=== PATIENT | male | born 1980 | race Caucasian/White ===

== ENCOUNTER 2017-01-31 02:14 | Emergency (ER) | payer OTHER ==
[2017-01-31] MEDS ORDERED: DICYCLOMINE 10 MG/ML 2 ML AMP IM STA (02:51)
--- NOTE | 2017-01-31 03:24 | XR ---
EXAM: 3 views of the abdomen. INDICATION: Pain. COMPARISON: None. FINDINGS: 3 AP supine and upright views of the abdomen demonstrates a nonobstructive, nonspecific gas pattern. No evidence of free intraperitoneal air. There is gaseous distention of the colon with nonspecific air-fluid levels. No evidence of organomegaly, abnormal calcifications or obvious soft tissue masses. The osseous structures are intact. IMPRESSION: Nonspecific air-fluid levels in the colon with associated gaseous distention. Please correlate for colonic ileus or enteritis.
[2017-01-31] MEDS ORDERED: cloNIDine HCL 0.1 MG TAB PO STA (03:26)
--- NOTE | 2017-01-31 03:28 | ED ---
Abdominal Pain HPI - General Chief Complaint: Abdominal Pain Stated Complaint: Abd pain, diarrhea Time Seen by Provider: 01/31/17 02:47 Source: patient, RN notes reviewed, old records reviewed Mode of arrival: ambulatory Limitations: no limitations - History of Present Illness Initial Comments: This is a 36 year old male with one day of diarrhea and abdominal pain. Patient daughter had similiar symtoms. Patient has no fever, chills, or abdominal tenderness. She states that the pain is a cramping sensation. No vomiting, but patient feels nauseated. No blood in stools. Patient states he has been drinking fluids and trying to stay hydrated. Patient has a PMH of diabetes and hypertension. - Related Data Home Medications Medication Instructions Recorded Confirmed Lisinopril [Prinivil] 1 tab PO DAILY 01/31/17 01/31/17 metFORMIN HCL 1 tab PO DAILY 01/31/17 01/31/17 Previous Rx's Medication Instructions Recorded Dicyclomine [Bentyl] 10 mg PO TID #20 capsule 01/31/17 Lisinopril [Prinivil] 10 mg PO DAILY #20 tab 01/31/17 Allergies Allergy/AdvReac Type Severity Reaction Status Date / Time No Known Allergies Allergy Verified 01/31/17 02:41 Review of Systems ROS Statement: Those systems with pertinent positive or pertinent negative responses have been documented in the HPI. ROS Other: All systems not noted in ROS Statement are negative. Past Medical History Past Medical History: Diabetes Mellitus, Hypertension History of Any Multi-Drug Resistant Organisms: None Reported Past Surgical History: Appendectomy Past Psychological History: No Psychological Hx Reported Smoking Status: Current every day smoker Past Alcohol Use History: Occasional Past Drug Use History: None Reported General Exam - General Exam Comments Initial Comments: Pleasant 36 year old male, no dsitress. Limitations: no limitations General appearance: alert, in no apparent distress Head exam: Present: atraumatic, normocephalic, normal inspection Eye exam: Present: normal appearance, PERRL, EOMI. Absent: scleral icterus, conjunctival injection, periorbital swelling ENT exam: Present: normal exam, mucous membranes moist Neck exam: Present: normal inspection. Absent: tenderness, meningismus, lymphadenopathy Respiratory exam: Present: normal lung sounds bilaterally. Absent: respiratory distress, wheezes, rales, rhonchi, stridor Cardiovascular Exam: Present: regular rate, normal rhythm, normal heart sounds. Absent: systolic murmur, diastolic murmur, rubs, gallop, clicks GI/Abdominal exam: Present: soft, normal bowel sounds. Absent: distended, tenderness, guarding, rebound, rigid Extremities exam: Present: normal inspection, full ROM, normal capillary refill. Absent: tenderness, pedal edema, joint swelling, calf tenderness Back exam: Present: normal inspection Neurological exam: Present: alert, oriented X3, CN II-XII intact Psychiatric exam: Present: normal affect, normal mood Skin exam: Present: warm, dry, intact, normal color. Absent: rash Course Vital Signs 01/31/17 01/31/17 02:37 03:35 Temperature 98.9 F 98.3 F Pulse Rate 102 H 80 Respiratory 20 18 Rate Blood Pressure 203/120 160/100 O2 Sat by Pulse 97 97 Oximetry Medical Decision Making - Medical Decision Making Patient is a 36 year old male with diarrhea and abdominal cramping for one day . PAteint does not appaer dehydrated. Xray abdomen shows signs of gastroenteritis. No abdominal tenderness. Patient will be discharged with bentyl , discussed follow up with PCP. Patient agrees with treatment plan and will comply. - Radiology Data Radiology results: report reviewed abdominal xray shows evidence of gastroenteritis. Disposition Clinical Impression: Gastroenteritis, Hypertension Disposition: HOME SELF-CARE Condition: Good Instructions: Gastroenteritis (ED) Additional Instructions: Patient advised to follow-up with primary care provider if symptoms continue persist. Take blood pressure medication. Remain hydrated. Return to emergency department if any alarming signs or symptoms occur. Prescriptions: Dicyclomine [Bentyl] 10 mg PO TID #20 capsule Lisinopril [Prinivil] 10 mg PO DAILY #20 tab Referrals: Judy Giles MD [STAFF PHYSICIAN] - 1-2 days Time of Disposition: 03:26
[2017-01-31 03:37] VITALS: BP 160/100; PULSE 80; RESP 18; TEMP 98.3
== END 2017-01-31 03:38 | disposition home or self-care (01) ==
LOC: EC 02:14
DX: K52.9 Noninfective gastroenteritis and colitis, unspecified (principal); I10 Essential (primary) hypertension; E11.9 Type 2 diabetes mellitus without complications; F17.200 Nicotine dependence, unspecified, uncomplicated; Z79.84 Long term (current) use of oral hypoglycemic drugs; Z79.899 Other long term (current) drug therapy; Z90.49 Acquired absence of other specified parts of digestive tract
CPT/HCPCS: 74020; 99284; 96372; J0500

== ENCOUNTER 2020-07-05 12:06 | Emergency (ER) | payer OTHER ==
[2020-07-05 12:28] VITALS: TEMP 98.9
[2020-07-05] MEDS ORDERED: lisinopriL 20 MG TAB PO STA (12:47)
--- NOTE | 2020-07-05 13:30 | XR ---
Right shoulder HISTORY: Trauma and pain 3 views of the right shoulder Right lung apex as visualized is normal. Bone mineralization, joint spaces and alignment are maintain ed. IMPRESSION: No fracture or dislocation.
--- NOTE | 2020-07-05 13:32 | ED ---
Upper Extremity HPI - General Chief Complaint: Extremity Injury, Upper Stated Complaint: R shoulder pain Time Seen by Provider: 07/05/20 12:32 Source: patient Mode of arrival: ambulatory Limitations: no limitations - History of Present Illness Initial Comments: 40-year-old male history of hypertension presents emergency department today for chief complaint of shoulder pain 1 month. Patient states that while he was at work he slipped on something plastic on the ground a month ago he states that he went to reach out to grab something to catch his fall and strained his right shoulder he states he has had pain ever since. He states that this morning he woke up and continued to have pain he thought it was time to get evaluated presented to the emergency department to have imaging studies performed. Patient states he is still able to range the shoulder he admits to discomfort he denies any numbness tingling or loss of sensation denies injury to the head or neck patient has significant elevation of blood pressure arrival he denies any chest pain shortness of breath decreased urine output headache nausea vomiting visual changes or leg swelling. Patient denies additional complaints he states he did not take his blood pressure medications today - Related Data Home Medications Medication Instructions Recorded Confirmed Lisinopril [Prinivil] 1 tab PO DAILY 01/31/17 01/31/17 metFORMIN HCL 1 tab PO DAILY 01/31/17 01/31/17 Previous Rx's Medication Instructions Recorded Dicyclomine [Bentyl] 10 mg PO TID #20 capsule 01/31/17 Lisinopril [Prinivil] 10 mg PO DAILY #20 tab 01/31/17 Allergies Allergy/AdvReac Type Severity Reaction Status Date / Time SSRI Meds AdvReac "patient Uncoded 07/05/20 12:45 states he gets weird" Review of Systems ROS Statement: Those systems with pertinent positive or pertinent negative responses have been documented in the HPI. ROS Other: All systems not noted in ROS Statement are negative. Past Medical History Past Medical History: Diabetes Mellitus, Hypertension History of Any Multi-Drug Resistant Organisms: None Reported Past Surgical History: Appendectomy Past Psychological History: No Psychological Hx Reported Smoking Status: Former smoker Past Alcohol Use History: Occasional Past Drug Use History: None Reported General Exam - General Exam Comments Initial Comments: General: The patient is awake and alert, in no distress Eye: Pupils are equal, round and reactive to light, extra-ocular movements are intact. No nystagmus. There is normal conjunctiva bilaterally. No signs of icterus. Ears, nose, mouth and throat: There are moist mucous membranes and no oral lesions. Neck: The neck is supple, there is no tenderness or JVD. Cardiovascular: There is a regular rate and rhythm. No murmur, rub or gallop is appreciated. Respiratory: Lungs are clear to auscultation, respirations are non-labored, breath sounds are equal. No wheezes, stridor, rales, or rhonchi. Gastrointestinal: Soft, non-distended, non-tender abdomen without masses or organomegaly noted. There is no rebound or guarding present Musculoskeletal: Normal ROM of the shoulder b/l with pain with ROm of the right shoulder. Strength 5/5. Sensation intact. radial pulses equal bilaterally 2+. Neurological: A&O x 3. CN II-XII intact, There are no obvious motor or sensory deficits. Coordination appears grossly intact. Speech is normal. Skin: Skin is warm and dry and no rashes or lesions are noted. No LE edema. Psychiatric: Cooperative, appropriate mood & affect, normal judgment. Limitations: no limitations Course Vital Signs 07/05/20 07/05/20 12:25 13:34 Temperature 98.9 F Pulse Rate 104 H 100 Respiratory 18 16 Rate Blood Pressure 188/103 185/133 O2 Sat by Pulse 99 96 Oximetry - Reevaluation(s) Reevaluation #1: Refused IV-- refused labs or work up for concern for hypertensive urgency, was willing to take oral BP medication Medical Decision Making - Medical Decision Making 40-year-old male presented for right shoulder pain ongoing times one month. Patient was significantly hypertensive on arrival. Repeat blood pressure continued to be elevated I recommended IV access for laboratory studies and further evaluation patient refused- i discussed concern for developing cardiac abnormalities, renal impairment from significant elevation of BP. He continued to refuse. I discussed concern that increased right shoulder pain could be in fact cardiac in nature. Patient continued to refuse and wanted to go home. He signed out AMA after discussing risk such as and permanent disability. Patient case discussed with Dr. Hess Disposition Clinical Impression: Right shoulder pain, Hypertensive urgency Disposition: Left Against Medical Advice Condition: Undetermined Additional Instructions: Please use medication as discussed. Please follow-up with family doctor in the next 2 days of symptoms have not improved. Please return to emergency room if the symptoms increase or worsen or for any other concerns. Is patient prescribed a controlled substance at d/c from ED?: No Referrals: None,Stated [Primary Care Provider] - 1-2 days Jimy Chong DO [Medical Doctor] - 1-2 days Time of Disposition: 13:38
[2020-07-05 13:35] VITALS: BP 185/133; PULSE 100; RESP 16
== END 2020-07-05 13:47 | disposition left against medical advice (07) ==
LOC: EC 12:06
DX: M25.511 Pain in right shoulder (principal); I16.0 Hypertensive urgency; I10 Essential (primary) hypertension; E11.9 Type 2 diabetes mellitus without complications; Z79.84 Long term (current) use of oral hypoglycemic drugs; Z79.899 Other long term (current) drug therapy; Z53.20 Procedure and treatment not carried out because of patient's decision for unspecified reasons; Z88.8 Allergy status to other drugs, medicaments and biological substances; Z87.891 Personal history of nicotine dependence
CPT/HCPCS: 99283

== ENCOUNTER 2021-08-05 19:28 | Inpatient (IN) | payer BC, OTHER ==
[2021-08-05] MEDS ORDERED: SODIUM CHLORIDE 0.9% 1,000 ML IV STA ×2 (20:32→21:38)
[2021-08-05] MEDS ORDERED: ONDANSETRON 4 MG/2 ML VIAL IVP STA (20:32)
[2021-08-05] MEDS ORDERED: ENALAPRILAT 1.25 MG/ML 1 ML VIAL IVP STA ×2 (20:33→21:30)
--- NOTE | 2021-08-05 20:35 | ED ---
General Adult HPI - General Chief complaint: Abdominal Pain Stated complaint: Nausea Time Seen by Provider: 08/05/21 20:30 Source: patient, RN notes reviewed Mode of arrival: ambulatory Limitations: no limitations - History of Present Illness Initial comments: Patient is a pleasant 41-year-old male presenting to the emergency Department with complaints of nausea. Patient ate [employer] yesterday and has been having symptoms since then. Patient is able to tolerate oral intake. Patient denies abdominal pain however only complains of nausea with some mild discomfort. No vomiting. No history of chronic abdominal problems. Patient has been off his blood pressure medication for the last 2 days. Patient states he ran out. - Related Data Home Medications Medication Instructions Recorded Confirmed lisinopriL 20 mg PO DAILY 09/21/20 08/05/21 metFORMIN HCL 500 mg PO DAILY 08/05/21 08/05/21 Allergies Allergy/AdvReac Type Severity Reaction Status Date / Time SSRI Meds AdvReac "patient Uncoded 08/05/21 21:33 states he gets weird" Review of Systems ROS Statement: Those systems with pertinent positive or pertinent negative responses have been documented in the HPI. ROS Other: All systems not noted in ROS Statement are negative. Constitutional: Denies: fever Eyes: Denies: eye pain ENT: Denies: ear pain Respiratory: Denies: cough Cardiovascular: Denies: chest pain Endocrine: Denies: fatigue Gastrointestinal: Reports: as per HPI, nausea Genitourinary: Denies: dysuria Musculoskeletal: Denies: back pain Skin: Denies: rash Neurological: Denies: weakness Past Medical History Past Medical History: Diabetes Mellitus, Hypertension Additional Past Medical History / Comment(s): Diet controlled diabetes. Recent blood in stool. History of Any Multi-Drug Resistant Organisms: None Reported Past Surgical History: Appendectomy Past Anesthesia/Blood Transfusion Reactions: No Reported Reaction Past Psychological History: No Psychological Hx Reported Smoking Status: Former smoker Past Alcohol Use History: None Reported Past Drug Use History: None Reported - Past Family History Father Family Medical History: No Reported History General Exam Limitations: no limitations General appearance: alert, in no apparent distress Head exam: Present: normocephalic Eye exam: Present: normal appearance Neck exam: Present: normal inspection Respiratory exam: Present: normal lung sounds bilaterally Cardiovascular Exam: Present: regular rate, normal rhythm Expanded Peripheral pulses: 2+: Posterior Tibialis (R), Posterior Tibialis (L) GI/Abdominal exam: Present: soft, normal bowel sounds. Absent: distended, tenderness, guarding, rebound, rigid, pulsatile mass Extremities exam: Present: normal inspection Neurological exam: Present: alert Psychiatric exam: Present: normal affect, normal mood Skin exam: Present: normal color Course Vital Signs 08/05/21 08/05/21 08/05/21 19:54 20:43 21:08 Temperature 97 F L Pulse Rate 115 H 117 H 87 Respiratory 19 18 18 Rate Blood Pressure 167/132 171/122 199/129 O2 Sat by Pulse 98 98 98 Oximetry 08/05/21 21:42 Temperature Pulse Rate 98 Respiratory 18 Rate Blood Pressure 144/108 O2 Sat by Pulse 98 Oximetry Medical Decision Making - Medical Decision Making Patient reevaluated and updated. Patient was considering leaving AGAINST MEDICAL ADVICE however is agreeing to stay for further control of his blood sugar and high blood pressure. Case was discussed with Dr. Wylie, who will admit covering Dr. Liang. - Lab Data Result diagrams: 08/05/21 21:01 08/05/21 21:01 Lab Results 08/05/21 08/05/21 08/05/21 Range/Units 21:01 21:01 21:01 WBC 8.5 (3.8-10.6) k/uL RBC 5.21 (4.30-5.90) m/uL Hgb 16.5 (13.0-17.5) gm/dL Hct 46.8 (39.0-53.0) % MCV 89.9 (80.0-100.0) fL MCH 31.7 (25.0-35.0) pg MCHC 35.3 (31.0-37.0) g/dL RDW 11.6 (11.5-15.5) % Plt Count 291 (150-450) k/uL MPV 7.1 Neutrophils % 70 % Lymphocytes % 21 % Monocytes % 5 % Eosinophils % 2 % Basophils % 1 % Neutrophils # 6.0 (1.3-7.7) k/uL Lymphocytes # 1.8 (1.0-4.8) k/uL Monocytes # 0.4 (0-1.0) k/uL Eosinophils # 0.2 (0-0.7) k/uL Basophils # 0.1 (0-0.2) k/uL PT (9.0-12.0) sec INR (<1.2) APTT (22.0-30.0) sec Sodium 126 L (137-145) mmol/L Potassium 4.1 (3.5-5.1) mmol/L Chloride 87 L (98-107) mmol/L Carbon Dioxide 27 (22-30) mmol/L Anion Gap 12 mmol/L BUN 13 (9-20) mg/dL Creatinine 0.80 (0.66-1.25) mg/dL Est GFR (CKD-EPI)AfAm >90 (>60 ml/min/1.73 sqM) Est GFR (CKD-EPI)NonAf >90 (>60 ml/min/1.73 sqM) Glucose 613 H* (74-99) mg/dL Calcium 9.8 (8.4-10.2) mg/dL Total Bilirubin 1.1 (0.2-1.3) mg/dL AST 24 (17-59) U/L ALT 22 (4-49) U/L Alkaline Phosphatase 288 H (38-126) U/L Total Protein 8.0 (6.3-8.2) g/dL Albumin 4.9 (3.5-5.0) g/dL Amylase 69 (30-110) U/L Lipase 112 (23-300) U/L Urine Color Urine Appearance (Clear) Urine pH (5.0-8.0) Ur Specific [place] (1.001-1.035) Urine Protein (Negative) Urine Glucose (UA) (Negative) Urine Ketones (Negative) Urine Blood (Negative) Urine Nitrite (Negative) Urine Bilirubin (Negative) Urine Urobilinogen (<2.0) mg/dL Ur Leukocyte Esterase (Negative) Acetone, Qual Negative (Negative) 08/05/21 08/05/21 Range/Units 21:06 Unknown WBC (3.8-10.6) k/uL RBC (4.30-5.90) m/uL Hgb (13.0-17.5) gm/dL Hct (39.0-53.0) % MCV (80.0-100.0) fL MCH (25.0-35.0) pg MCHC (31.0-37.0) g/dL RDW (11.5-15.5) % Plt Count (150-450) k/uL MPV Neutrophils % % Lymphocytes % % Monocytes % % Eosinophils % % Basophils % % Neutrophils # (1.3-7.7) k/uL Lymphocytes # (1.0-4.8) k/uL Monocytes # (0-1.0) k/uL Eosinophils # (0-0.7) k/uL Basophils # (0-0.2) k/uL PT 10.5 (9.0-12.0) sec INR 1.0 (<1.2) APTT 23.2 (22.0-30.0) sec Sodium (137-145) mmol/L Potassium (3.5-5.1) mmol/L Chloride (98-107) mmol/L Carbon Dioxide (22-30) mmol/L Anion Gap mmol/L BUN (9-20) mg/dL Creatinine (0.66-1.25) mg/dL Est GFR (CKD-EPI)AfAm (>60 ml/min/1.73 sqM) Est GFR (CKD-EPI)NonAf (>60 ml/min/1.73 sqM) Glucose (74-99) mg/dL Calcium (8.4-10.2) mg/dL Total Bilirubin (0.2-1.3) mg/dL AST (17-59) U/L ALT (4-49) U/L Alkaline Phosphatase (38-126) U/L Total Protein (6.3-8.2) g/dL Albumin (3.5-5.0) g/dL Amylase (30-110) U/L Lipase (23-300) U/L Urine Color Colorless Urine Appearance Clear (Clear) Urine pH 6.5 (5.0-8.0) Ur Specific [place] 1.029 (1.001-1.035) Urine Protein Negative (Negative) Urine Glucose (UA) 4+ H (Negative) Urine Ketones Negative (Negative) Urine Blood Negative (Negative) Urine Nitrite Negative (Negative) Urine Bilirubin Negative (Negative) Urine Urobilinogen <2.0 (<2.0) mg/dL Ur Leukocyte Esterase Negative (Negative) Acetone, Qual (Negative) - Radiology Data Radiology results: report reviewed (Abdominal aorta ultrasound shows no acute process), image reviewed (KUB shows nonacute abdomen) Critical Care Time Critical Care Time: Yes Total Critical Care Time: 32 Disposition Clinical Impression: Hypertensive urgency, Hyperglycemia Disposition: ADMITTED IP TO THIS HOSP Is patient prescribed a controlled substance at d/c from ED?: No Referrals: Ariane Liang DO [Primary Care Provider] - 1-2 days Decision Time: 22:01
[2021-08-05 21:17] LABS: Appearance,Urine Clear (Clear); Bilirubin,Urine Negative (Negative); Blood,Urine Negative (Negative); Color,Urine Colorless; Glucose,Urine (UA) 4+ (Negative); Ketones,Urine Negative (Negative); Leukocyte Esterase,Urine Negative (Negative); Nitrite,Urine Negative (Negative); PH, Urine 6.5 (5.0-8.0); Protein,Urine Negative (Negative); Specific Gravity,Urine 1.029 (1.001-1.035); Urobilinogen,Urine <2.0 mg/dL (<2.0)
[2021-08-05 21:18] LABS: Basophils # (A) 0.1 k/uL (0-0.2); Basophils % (A) 1 %; Eosinophils # (A) 0.2 k/uL (0-0.7); Eosinophils % (A) 2 %; HCT 46.8 % (39.0-53.0); HGB 16.5 gm/dL (13.0-17.5); Lymphocytes # (A) 1.8 k/uL (1.0-4.8); Lymphocytes % (A) 21 %; MCH 31.7 pg (25.0-35.0); MCHC 35.3 g/dL (31.0-37.0); MCV 89.9 fL (80.0-100.0); Mean Platelet Volume 7.1; Monocytes # (A) 0.4 k/uL (0-1.0); Monocytes % (A) 5 %; Neutrophils % (A) 70 %; Platelet Count 291 k/uL (150-450); RBC 5.21 m/uL (4.30-5.90); RDW 11.6 % (11.5-15.5); WBC 8.5 k/uL (3.8-10.6)
[2021-08-05 21:20] LABS: ALT 22 U/L (4-49); AST 24 U/L (17-59); African American GFR (CKD) >90 (>60 ml/min/1.73 sqM); Albumin 4.9 g/dL (3.5-5.0); Alkaline Phosphatase 288 U/L (38-126); Amylase 69 U/L (30-110); Anion Gap 12 mmol/L; Blood Urea Nitrogen 13 mg/dL (9-20); Calcium 9.8 mg/dL (8.4-10.2); Carbon Dioxide 27 mmol/L (22-30); Chloride 87 mmol/L (98-107); Lipase 112 U/L (23-300); Non-African American GFR(CKD) >90 (>60 ml/min/1.73 sqM); Potassium 4.1 mmol/L (3.5-5.1); Sodium 126 mmol/L (137-145); Total Bilirubin 1.1 mg/dL (0.2-1.3)
[2021-08-05 21:21] LABS: Glucose 613 mg/dL (74-99)
[2021-08-05 21:23] LABS: Partial Thromboplastin Time 23.2 sec (22.0-30.0); Prothrombin Time 10.5 sec (9.0-12.0)
--- NOTE | 2021-08-05 21:42 | XR ---
EXAMINATION TYPE: XR KUB DATE OF EXAM: 08/05/2021 COMPARISON: NONE HISTORY: Abdominal pain TECHNIQUE: 2 views FINDINGS: There is no sign of intestinal obstruction or pneumoperitoneum. Fecal pattern is normal. Th ere is no evidence of a mass. There are no pathologic calcifications over the kidneys. Lung bases are clear. IMPRESSION: Nonacute abdomen.
--- NOTE | 2021-08-05 21:56 | US ---
EXAMINATION TYPE: US duplex aorta DATE OF EXAM: 08/05/2021 COMPARISON: 2010 CLINICAL HISTORY: evaluate aorta, pain. Pain. Evaluate aorta. Current smoker, hypertension. EXAM MEASUREMENTS: Abdominal Aorta: Proximal: 2.2 x 1.7 cm. Mid: 1.9 x 2.0 cm. Distal: 1.8 x 1.5 cm. Bifurcation: Right iliac: 1.3 x 1.3 cm. Left iliac: 1.2 x 1.2 cm. Slightly limited due to overlying bowel gas. IMPRESSION: Negative exam. No evidence of abdominal aortic aneurysm or dissection.
[2021-08-05] MEDS ORDERED: INSULIN REGULAR 100 UNIT/ML VIAL (IV) IV ONE (22:02)
[2021-08-05] MEDS ORDERED: hydrALAZINE HCL 20 MG/ML 1 ML VIAL IVP PRN (22:02)
[2021-08-05] MEDS ORDERED: NALOXONE 0.4 MG/ML 1 ML VIAL IV PRN (22:03)
[2021-08-05] MEDS ORDERED: ONDANSETRON 4 MG/2 ML VIAL IVP PRN (22:03)
[2021-08-05 23:03] LABS: Glucose,Whole Blood 392 mg/dL (75-99)
[2021-08-06] MEDS: SODIUM CHLORIDE 0.9% 1,000 ML IV SCH ×4 (02:25→20:41)
[2021-08-06 06:01] LABS: African American GFR (CKD) >90 (>60 ml/min/1.73 sqM); Anion Gap 6 mmol/L; Blood Urea Nitrogen 14 mg/dL (9-20); Carbon Dioxide 28 mmol/L (22-30); Chloride 99 mmol/L (98-107); Glucose 381 mg/dL (74-99); Non-African American GFR(CKD) >90 (>60 ml/min/1.73 sqM); Potassium 4.1 mmol/L (3.5-5.1); Sodium 133 mmol/L (137-145)
[2021-08-06 07:55] LABS: Glucose,Whole Blood 310 mg/dL (75-99)
[2021-08-06] MEDS: INSULIN ASPART (NovoLOG) 100 UNIT/ML VIAL SQ SCH ×4 (08:05→20:38)
[2021-08-06] MEDS ORDERED: PANTOPRAZOLE 40 MG/10 ML VIAL IV SCH (09:00)
[2021-08-06] MEDS: lisinopriL 20 MG TAB PO SCH (11:10)
[2021-08-06] MEDS: metFORMIN 500 MG TAB PO SCH (11:10)
[2021-08-06] MEDS: hydroCHLOROthiazide 12.5 MG CAP PO SCH (11:48)
[2021-08-06 11:51] LABS: Glucose,Whole Blood 215 mg/dL (75-99)
[2021-08-06 17:29] LABS: Glucose,Whole Blood 352 mg/dL (75-99)
[2021-08-06 20:10] LABS: Glucose,Whole Blood 256 mg/dL (75-99)
--- NOTE | 2021-08-06 23:22 | P.HPIM ---
History of Present Illness H&P Date: 08/06/21 Reginald Laurent is a 41 yo M with PMH of T2DM, HTN who presented to the ED with 2 day history of nausea and malaise. He notes that 2 days ago he ran out of his BP medications and after eating fast food began to feel nauseated and malaised. He continued to experience this so came to the ED. Denies chest pain, shortness of breath, abdominal pain. BP 199/129, sodium 126, glucose 600. He was given 5 uni ts insulin in the ED with improvement of his glucose. Currently he denies abdominal pain or nausea. Review of Systems All systems: negative Constitutional: Reports malaise, Reports weakness, Denies chills, Denies fever Eyes: denies blurred vision, denies pain Ears, nose, mouth and throat: Denies headache, Denies sore throat Cardiovascular: Denies chest pain, Denies shortness of breath Respiratory: Denies cough Gastrointestinal: Reports nausea, Reports vomiting, Denies abdominal pain, Denies diarrhea Musculoskeletal: Denies myalgias Integumentary: Denies pruritus, Denies rash Neurological: Denies numbness, Denies weakness Psychiatric: Denies anxiety, Denies depression Endocrine: Denies fatigue, Denies weight change Past Medical History Past Medical History: Diabetes Mellitus, Hypertension Additional Past Medical History / Comment(s): Diet controlled diabetes. Recent blood in stool. History of Any Multi-Drug Resistant Organisms: None Reported Past Surgical History: Appendectomy Past Anesthesia/Blood Transfusion Reactions: No Reported Reaction Past Psychological History: No Psychological Hx Reported Smoking Status: Former smoker Past Alcohol Use History: None Reported Past Drug Use History: None Reported - Past Family History Father Family Medical History: No Reported History Medications and Allergies Home Medications Medication Instructions Recorded Confirmed Type lisinopriL 20 mg PO DAILY 09/21/20 08/05/21 History metFORMIN HCL 500 mg PO DAILY 08/05/21 08/05/21 History Allergies Allergy/AdvReac Type Severity Reaction Status Date / Time SSRI Meds AdvReac "patient Uncoded 08/05/21 21:33 states he gets weird" Physical Exam Vitals: Vital Signs Temp Pulse Pulse Resp BP BP Pulse Ox 08/06/21 20:00 98.0 F 71 18 129/83 98 08/06/21 16:20 98.3 F 78 16 129/85 98 08/06/21 15:32 98 16 143/104 98 08/06/21 14:17 138/91 08/06/21 12:31 155/117 08/06/21 11:45 98.3 F 76 18 158/111 98 08/06/21 11:09 83 18 155/117 97 08/06/21 07:49 97.8 F 63 18 141/99 100 08/06/21 06:48 84 20 135/95 96 08/06/21 04:30 82 20 96 08/06/21 02:26 84 20 135/85 96 08/05/21 23:26 86 18 129/75 97 Intake and Output 08/06/21 08/06/21 08/07/21 14:59 22:59 06:59 Intake Total 402 Balance 402 Intake: Oral 402 Other: Voiding Method Toilet General: well nourished, well developed, NAD. Vitals reviewed Eyes: PERRL, EOMI, conjunctiva normal HENT: normocephalic, mucus membranes moist Neck: supple, no JVD Lungs: normal respiratory effort, no wheezes or rales CV: Regular rate and rhythm, no murmur. Peripheral pulses 2+ Abdomen: soft, nondistended, no organomegaly Lymph: no cervical or axillary LAD Skin: warm and dry. Neuro: A&Ox3, normal mood and affect Results CBC & Chem 7: 08/05/21 21:01 08/06/21 05:24 Labs: Abnormal Lab Results - Last 24 Hours (Table) 08/06/21 08/06/21 08/06/21 Range/Units 05:24 07:54 11:49 Sodium 133 L (137-145) mmol/L Glucose 381 H (74-99) mg/dL POC Glucose (mg/dL) 310 H 215 H (75-99) mg/dL 08/06/21 08/06/21 Range/Units 17:27 20:09 Sodium (137-145) mmol/L Glucose (74-99) mg/dL POC Glucose (mg/dL) 352 H 256 H (75-99) mg/dL Assessment and Plan Plan: 1. Hypertensive urgency. Pt given IV enalapril. Continue home lisinopril, add HCTZ 2. Hyperglyemic hyperosmolar syndrome. Continue with sliding scale insulin, continue metformin, IV fluids
[2021-08-07 06:18] LABS: Glucose,Whole Blood 267 mg/dL (75-99)
[2021-08-07] MEDS: INSULIN ASPART (NovoLOG) 100 UNIT/ML VIAL SQ SCH ×2 (06:35→11:59)
[2021-08-07] MEDS ORDERED: PANTOPRAZOLE 40 MG TABLET PO SCH (07:30)
[2021-08-07] MEDS: metFORMIN 500 MG TAB PO SCH (08:33)
[2021-08-07] MEDS: hydroCHLOROthiazide 12.5 MG CAP PO SCH (08:33)
[2021-08-07] MEDS: lisinopriL 20 MG TAB PO SCH (08:33)
[2021-08-07 09:00] VITALS: BP 138/79; PULSE 68; RESP 16; TEMP 97.9
--- NOTE | 2021-08-07 11:16 | P.DS ---
Providers Date of admission: 08/05/21 22:03 Expected date of discharge: 08/07/21 Attending physician: Nicola Wylie MD Primary care physician: Ariane Liang [facility] Course: Final Diagnoses: Hypertensive urgency Hyperglycemic hyperosmolar syndrome Medical noncompliance, drinking Mountain Dew, ran out of his blood pressure medications, eating fast food Hospital course:Reginald Laurent is a 41 yo M with PMH of T2DM, HTN who presented to the ED with 2 day history of nausea and malaise. He notes that 2 days ago he ran out of his BP medications and after eating fast food began to feel nauseated and malaised. He continued to experience this so came to the ED. Denies chest pain, shortness of breath, abdominal pain. BP 199/129, sodium 126, glucose 600. He was given 5 units insulin in the ED with improvement of his glucose. Currentl y he denies abdominal pain or nausea. Patient stating he drinks a lot of regular Mountain Dew.Consistent carb diet reinforced, maintained on metformin and NovoLog sliding scale with blood sugars better controlled. Blood pressure controlled. Significant clinical improvement. Metformin increased. Patient will be discharged home today in a stable condition with guarded prognosis. The impression and plan of care has been dictated as directed. : I performed a history and examination of this patient, discussed the same with the dictator. I agree with the dictator's note ,documented as a scribe. Any additional findings or plans will be noted. Patient Condition at Discharge: Stable Plan - Discharge Summary New Discharge Prescriptions: New Pantoprazole [Protonix] 40 mg PO AC-BRKFST #30 tab Continue lisinopriL 20 mg PO DAILY Changed metFORMIN HCL 1,000 mg PO BID #60 tab Discharge Medication List lisinopriL 20 mg PO DAILY 09/21/20 [History] Pantoprazole [Protonix] 40 mg PO AC-BRKFST #30 tab 08/07/21 [Rx] metFORMIN HCL 1,000 mg PO BID #60 tab 08/07/21 [Rx] Follow up Appointment(s)/Referral(s): Ariane Liang DO [Primary Care Provider] - 08/09/21 4:00 pm Patient Instructions/Handouts: Hypertensive Crisis (GEN), Diabetic Hyperglycemia (DC) Activity/Diet/Wound Care/Special Instructions: Free glucometer Accu-Cheks before meals and at bedtime, maintain log intake and to follow-up visit with PCP for further recommendations. Consistent carb diet
[2021-08-07 11:43] LABS: Glucose,Whole Blood 401 mg/dL (75-99)
== END 2021-08-07 12:53 | disposition home or self-care (01) | DRG 304 ==
LOC: EC 19:28 → 5NMEDONC 22:03 → 3SCARD 08-06 12:50
PROVIDERS: ADMIT Family Medicine; ATTEND Family Medicine
DX: I16.0 Hypertensive urgency (principal); E11.00 Type 2 diabetes mellitus with hyperosmolarity without nonketotic hyperglycemic-hyperosmolar coma (NKHHC); I10 Essential (primary) hypertension; Z20.822 Contact with and (suspected) exposure to COVID-19; Z79.84 Long term (current) use of oral hypoglycemic drugs; Z79.899 Other long term (current) drug therapy; Z87.891 Personal history of nicotine dependence; Z91.19 Patient's noncompliance with other medical treatment and regimen; Z88.8 Allergy status to other drugs, medicaments and biological substances; Z87.19 Personal history of other diseases of the digestive system
CPT/HCPCS: 36415; 74018; 80048; 80053; 81003; 82009; 82150; 83036; 83690; 85025; 85610; 85730; 87635; 93979; 96361; 96374; 96375; 96376; 99285

== ENCOUNTER 2024-07-20 22:44 | Emergency (ER) | payer OTHER ==
[2024-07-20 22:50] VITALS: TEMP 98.2
--- NOTE | 2024-07-20 23:41 | ED ---
General Adult HPI - General Chief complaint: Recheck/Abnormal Lab/Rx Stated complaint: Drug Test - [facility] Time Seen by Provider: 07/20/24 22:59 Source: patient Mode of arrival: ambulatory Limitations: no limitations - History of Present Illness Initial comments: 44-year-old male here for [facility] visit. Patient was at work operating a [employer] when he excellently bumped into another object. He sustained no injuries, he was sent here for drug testing. In triage patient was noted to be hypertensive initial blood pressure 253/146. States that he did not take his blood pressure medication today. He is having no symptoms at this time. No chest pain, difficulty breathing, abdominal pain, nausea, vomiting, headache, vision changes. - Related Data Home Medications Medication Instructions Recorded Confirmed lisinopriL 20 mg PO DAILY 09/21/20 08/05/21 Previous Rx's Medication Instructions Recorded Pantoprazole [Protonix] 40 mg PO AC-BRKFST #30 tab 08/07/21 metFORMIN HCL 1,000 mg PO BID #60 tab 08/07/21 Allergies Allergy/AdvReac Type Severity Reaction Status Date / Time SSRI Meds AdvReac "patient Uncoded 07/20/24 22:51 states he gets weird" Review of Systems ROS Statement: Those systems with pertinent positive or pertinent negative responses have been documented in the HPI. ROS Other: All systems not noted in ROS Statement are negative. Past Medical History Past Medical History: Diabetes Mellitus, Hypertension Additional Past Medical History / Comment(s): Diet controlled diabetes. Recent blood in stool. History of Any Multi-Drug Resistant Organisms: None Reported Past Surgical History: Appendectomy Past Anesthesia/Blood Transfusion Reactions: No Reported Reaction Past Psychological History: No Psychological Hx Reported Smoking Status: Former smoker Past Alcohol Use History: None Reported Past Drug Use History: None Reported - Past Family History Father Family Medical History: No Reported History General Exam Limitations: no limitations General appearance: alert, in no apparent distress Head exam: Present: atraumatic, normocephalic, normal inspection Eye exam: Present: normal appearance, EOMI Neck exam: Present: normal inspection. Absent: meningismus Respiratory exam: Present: normal lung sounds bilaterally. Absent: respiratory distress, wheezes, rales, rhonchi, stridor Cardiovascular Exam: Present: regular rate, normal rhythm, normal heart sounds. Absent: systolic murmur, diastolic murmur, rubs, gallop, clicks Neurological exam: Present: alert, oriented X3 Psychiatric exam: Present: normal affect, normal mood Skin exam: Present: warm, dry Course Vital Signs 07/20/24 07/20/24 07/21/24 22:46 23:44 00:38 Temperature 98.2 F Pulse Rate 107 H 93 73 Respiratory 20 18 18 Rate Blood Pressure 253/146 225/152 181/120 O2 Sat by Pulse 98 Oximetry 07/21/24 02:02 Temperature Pulse Rate 75 Respiratory 18 Rate Blood Pressure 185/100 O2 Sat by Pulse 98 Oximetry EKG Findings - EKG Comments: EKG Findings:: Sinus rhythm ventricular rate 88. DC interval 153. QRS 103. QT 352. QTc 398 Medical Decision Making - Medical Decision Making Was pt. sent in by a medical professional or institution (, PA, HEALTH UNIT CLERK, urgent care, hospital, or shelter...) When possible be specific @ -No Did you speak to anyone other than the patient for history (EMS, parent, family, police, friend...)? What history was obtained from this source @ -No Did you review nursing and triage notes (agree or disagree)? Why? @ -I reviewed and agree with nursing and triage notes Were old charts reviewed (outside hosp., previous admission, EMS record, old EKG, old radiological studies, urgent care reports/EKG's, shelter records)? Report findings @ -No old charts were reviewed Differential Diagnosis (chest pain, altered mental status, abdominal pain women, abdominal pain men, vaginal bleeding, weakness, fever, dyspnea, syncope, headache, dizziness, GI bleed, back pain, seizure, CVA, palpatations, mental health, musculoskeletal)? @ -Differential includes hypertension, hypertensive urgency, hypertensive emergency, this is not an all-inclusive list EKG interpreted by me (3pts min.). @ -Sinus rhythm ventricular rate 88. DC interval 153. QRS 103. QT 352. QTc 398. X-rays interpreted by me (1pt min.). @ -None done CT interpreted by me (1pt min.). @ -None done U/S interpreted by me (1pt. min.). @ -None done What testing was considered but not performed or refused? (CT, X-rays, U/S, labs)? Why? @ -None What meds were considered but not given or refused? Why? @ -None Did you discuss the management of the patient with other professionals (professionals i.e. Dr., PA, HEALTH UNIT CLERK, lab, RT, psych nurse, outreach and education social worker, electrical engineering professor, teacher, motor equipment commanding officer, complex case manager)? Give summary @ -No Was smoking cessation discussed for >3mins.? @ -No Was critical care preformed (if so, how long)? @ -No Were there social determinants of health that impacted care today? How? (Homelessness, low income, unemployed, alcoholism, drug addiction, transportation, low edu. Level, literacy, decrease access to med. care, [facility], rehab)? @ -No Was there de-escalation of care discussed even if they declined (Discuss DNR or withdrawal of care, Hospice)? DNR status @ -No What co-morbidities impacted this encounter? (DM, HTN, Smoking, COPD, CAD, Cancer, CVA, ARF, Chemo, Hep., AIDS, mental health diagnosis, sleep apnea, morbid obesity)? @ -None Was patient admitted / discharged? Hospital course, mention meds given and route, prescriptions, significant lab abnormalities, going to OR and other pertinent info. @ -44-year-old male sent in by his employer for drug screening after he ran into an object on a [email or web address]. No injuries. Upon arrival patient was noted to be hypertensive with blood pressure 253/146. He is asymptomatic. He is given labetalol 20 mg. Labs are obtained which show normal kidney function negative troponin no leukocytosis or anemia. Blood pressure is improving has come down to 185/100. Patient remains asymptomatic. Patient will be discharged home, educated on remaining compliant with his blood pressure medication and instructed to follow-up with his PCP. Follow-up with PCP. Report back to ER with any new or worsening symptoms. Discussed return parameters and answered all questions. Patient conveyed verbal understanding and agreed to the plan. I discussed this case in detail with my attending Dr. Jane Undiagnosed new problem with uncertain prognosis? @ -No Drug Therapy requiring intensive monitoring for toxicity (Heparin, Nitro, I nsulin, Cardizem)? @ -No Were any procedures done? @ -No Diagnosis/symptom? @ -Hypertension Acute, or Chronic, or Acute on Chronic? @ -Acute Uncomplicated (without systemic symptoms) or Complicated (systemic symptoms)? @ -Uncomplicated Side effects of treatment? @ -No Exacerbation, Progression, or Severe Exacerbation? @ -No - Lab Data Result diagrams: 07/20/24 23:35 07/20/24 23:35 Lab Results 07/20/24 07/20/24 07/20/24 Range/Units 23:35 23:35 23:35 WBC 7.1 (3.8-10.6) k/uL RBC 5.07 (4.30-5.90) m/uL Hgb 15.8 (13.0-17.5) gm/dL Hct 44.2 (39.0-53.0) % MCV 87.1 (80.0-100.0) fL MCH 31.3 (25.0-35.0) pg MCHC 35.9 (31.0-37.0) g/dL RDW 13.2 (11.5-15.5) % Plt Count 356 (150-450) k/uL MPV 6.8 Neutrophils % 75 % Lymphocytes % 17 % Monocytes % 4 % Eosinophils % 3 % Basophils % 1 % Neutrophils # 5.3 (1.3-7.7) k/uL Lymphocytes # 1.2 (1.0-4.8) k/uL Monocytes # 0.3 (0-1.0) k/uL Eosinophils # 0.2 (0-0.7) k/uL Basophils # 0.0 (0-0.2) k/uL PT 10.7 (10.0-12.5) sec INR 1.0 (<1.2) APTT 25.6 (22.0-30.0) sec Sodium 138 (137-145) mmol/L Potassium 3.9 (3.5-5.1) mmol/L Chloride 103 (98-107) mmol/L Carbon Dioxide 26 (22-30) mmol/L Anion Gap 9 mmol/L BUN 21 H (9-20) mg/dL Creatinine 0.83 (0.66-1.25) mg/dL Est GFR (CKD-EPI)AfAm >90 (>60 ml/min/1.73 sqM) Est GFR (CKD-EPI)NonAf >90 (>60 ml/min/1.73 sqM) Glucose 176 H (74-99) mg/dL Calcium 9.9 (8.4-10.2) mg/dL Magnesium 1.6 (1.6-2.3) mg/dL Total Bilirubin 1.8 H (0.2-1.3) mg/dL AST 30 (17-59) U/L ALT 27 (4-49) U/L Alkaline Phosphatase 118 (38-126) U/L Troponin I (0.000-0.034) ng/mL Total Protein 8.2 (6.3-8.2) g/dL Albumin 5.2 H (3.5-5.0) g/dL 07/20/24 Range/Units 23:35 WBC (3.8-10.6) k/uL RBC (4.30-5.90) m/uL Hgb (13.0-17.5) gm/dL Hct (39.0-53.0) % MCV (80.0-100.0) fL MCH (25.0-35.0) pg MCHC (31.0-37.0) g/dL RDW (11.5-15.5) % Plt Count (150-450) k/uL MPV Neutrophils % % Lymphocytes % % Monocytes % % Eosinophils % % Basophils % % Neutrophils # (1.3-7.7) k/uL Lymphocytes # (1.0-4.8) k/uL Monocytes # (0-1.0) k/uL Eosinophils # (0-0.7) k/uL Basophils # (0-0.2) k/uL PT (10.0-12.5) sec INR (<1.2) APTT (22.0-30.0) sec Sodium (137-145) mmol/L Potassium (3.5-5.1) mmol/L Chloride (98-107) mmol/L Carbon Dioxide (22-30) mmol/L Anion Gap mmol/L BUN (9-20) mg/dL Creatinine (0.66-1.25) mg/dL Est GFR (CKD-EPI)AfAm (>60 ml/min/1.73 sqM) Est GFR (CKD-EPI)NonAf (>60 ml/min/1.73 sqM) Glucose (74-99) mg/dL Calcium (8.4-10.2) mg/dL Magnesium (1.6-2.3) mg/dL Total Bilirubin (0.2-1.3) mg/dL AST (17-59) U/L ALT (4-49) U/L Alkaline Phosphatase (38-126) U/L Troponin I <0.012 (0.000-0.034) ng/mL Total Protein (6.3-8.2) g/dL Albumin (3.5-5.0) g/dL Disposition Clinical Impression: Hypertension Disposition: HOME SELF-CARE Condition: Fair Instructions (If sedation given, give patient instructions): Hypertension (ED) Additional Instructions: Follow-up with your PCP. Report back to ER with any new or worsening symptoms. It is important that you remember to take your daily blood pressure medication. Is patient prescribed a controlled substance at d/c from ED?: No Referrals: Nonstaff,Physician [Primary Care Provider] - 1-2 days Time of Disposition: 00:52
[2024-07-20 23:46] VITALS: RESP 18
[2024-07-20] MEDS: LABETALOL 5 MG/ML VIAL MDV IVP STA (23:46)
[2024-07-20 23:49] LABS: Basophils % (A) 1 %; Eosinophils # (A) 0.2 k/uL (0-0.7); Eosinophils % (A) 3 %; HCT 44.2 % (39.0-53.0); HGB 15.8 gm/dL (13.0-17.5); Lymphocytes # (A) 1.2 k/uL (1.0-4.8); Lymphocytes % (A) 17 %; MCH 31.3 pg (25.0-35.0); MCHC 35.9 g/dL (31.0-37.0); MCV 87.1 fL (80.0-100.0); Mean Platelet Volume 6.8; Monocytes # (A) 0.3 k/uL (0-1.0); Monocytes % (A) 4 %; Neutrophils # (A) 5.3 k/uL (1.3-7.7); Neutrophils % (A) 75 %; Platelet Count 356 k/uL (150-450); RBC 5.07 m/uL (4.30-5.90); RDW 13.2 % (11.5-15.5); WBC 7.1 k/uL (3.8-10.6)
[2024-07-20 23:58] LABS: Partial Thromboplastin Time 25.6 sec (22.0-30.0); Prothrombin Time 10.7 sec (10.0-12.5)
[2024-07-21 00:01] LABS: ALT 27 U/L (4-49); AST 30 U/L (17-59); African American GFR (CKD) >90 (>60 ml/min/1.73 sqM); Albumin 5.2 g/dL (3.5-5.0); Alkaline Phosphatase 118 U/L (38-126); Anion Gap 9 mmol/L; Blood Urea Nitrogen 21 mg/dL (9-20); Calcium 9.9 mg/dL (8.4-10.2); Carbon Dioxide 26 mmol/L (22-30); Chloride 103 mmol/L (98-107); Glucose 176 mg/dL (74-99); Magnesium 1.6 mg/dL (1.6-2.3); Non-African American GFR(CKD) >90 (>60 ml/min/1.73 sqM); Potassium 3.9 mmol/L (3.5-5.1); Sodium 138 mmol/L (137-145); Total Bilirubin 1.8 mg/dL (0.2-1.3); Total Protein 8.2 g/dL (6.3-8.2)
[2024-07-21 02:03] VITALS: BP 185/100; PULSE 75
== END 2024-07-21 02:06 | disposition home or self-care (01) ==
LOC: EC 22:44
CPT/HCPCS: 36415; 80053; 83735; 84484; 85025; 85610; 85730; 93005; 96374; 99283

== ENCOUNTER 2024-10-23 23:17 | Emergency (ER) | payer BC ==
[2024-10-23 23:38] VITALS: TEMP 98
--- NOTE | 2024-10-23 23:39 | ED ---
Neuro HPI - General Chief Complaint: Neuro Symptoms/Deficit Stated Complaint: Eye issues, dizziness Time Seen by Provider: 10/23/24 23:38 Source: patient, RN notes reviewed, old records reviewed Mode of arrival: wheelchair Limitations: no limitations - History of Present Illness Is the patient presenting with stroke symptoms?: No -: hour(s) Initial Comments: This is a 44-year-old male presenting with his or girlfriend for evaluation of difficulty moving left eye eye deviation symptom some nausea and dizziness symptoms began pretty acutely tonight and blood pressure was noted to be significantly high. History of high blood pressure history of diabetes. No recent traumas fevers no headaches. No chest pain shortness of breath or abdominal pain. No other complaint able to see out of both eyes but is seeing double to triple out of the left eye Place: home Severity: severe Improves With: none Worsens With: none On Anticoagulants: No Associated Symptoms: nausea/vomiting, weakness Treatments Prior to Arrival: none - Related Data Home Medications: Home Medications Medication Instructions Recorded Confirmed lisinopriL 20 mg PO DAILY 09/21/20 08/05/21 Previous Rx's Medication Instructions Recorded Pantoprazole [Protonix] 40 mg PO AC-BRKFST #30 tab 08/07/21 metFORMIN HCL 1,000 mg PO BID #60 tab 08/07/21 Allergies/Adverse Reactions: Allergies Allergy/AdvReac Type Severity Reaction Status Date / Time SSRI Meds AdvReac "patient Uncoded 10/23/24 23:33 states he gets weird" Review of Systems ROS Statement: Those systems with pertinent positive or pertinent negative responses have been documented in the HPI. ROS Other: All systems not noted in ROS Statement are negative. General Exam Limitations: no limitations General appearance: alert, in no apparent distress Head exam: Present: atraumatic, normocephalic, normal inspection Eye exam: Present: normal appearance, other (left eye gaze deviation lateral, pupil Left dilation). Absent: scleral icterus, conjunctival injection, periorbital swelling ENT exam: Present: normal exam, mucous membranes moist Neck exam: Present: normal inspection. Absent: tenderness, meningismus, lymphadenopathy Respiratory exam: Present: normal lung sounds bilaterally. Absent: respiratory distress, wheezes, rales, rhonchi, stridor Cardiovascular Exam: Present: regular rate, normal rhythm, normal heart sounds. Absent: systolic murmur, diastolic murmur, rubs, gallop, clicks GI/Abdominal exam: Present: soft, normal bowel sounds. Absent: distended, tenderness, guarding, rebound, rigid Extremities exam: Present: normal inspection, full ROM, normal capillary refill. Absent: tenderness, pedal edema, joint swelling, calf tenderness Back exam: Present: normal inspection Neurological exam: Present: alert, oriented X3, CN II-XII intact Psychiatric exam: Present: normal affect, normal mood Skin exam: Present: warm, dry, intact, normal color. Absent: rash Stroke MDM - Lab Data Result diagrams: 10/23/24 23:44 10/23/24 23:44 Lab Results 10/23/24 10/23/24 10/23/24 Range/Units 23:42 23:44 23:44 WBC 16.0 H (3.8-10.6) k/uL RBC 5.60 (4.30-5.90) m/uL Hgb 17.1 (13.0-17.5) gm/dL Hct 49.3 (39.0-53.0) % MCV 88.0 (80.0-100.0) fL MCH 30.6 (25.0-35.0) pg MCHC 34.7 (31.0-37.0) g/dL RDW 12.4 (11.5-15.5) % Plt Count 412 (150-450) k/uL MPV 6.6 Neutrophils % 91 % Lymphocytes % 6 % Monocytes % 2 % Eosinophils % 1 % Basophils % 0 % Neutrophils # 14.6 H (1.3-7.7) k/uL Lymphocytes # 0.9 L (1.0-4.8) k/uL Monocytes # 0.3 (0-1.0) k/uL Eosinophils # 0.1 (0-0.7) k/uL Basophils # 0.1 (0-0.2) k/uL PT 11.2 (10.0-12.5) sec INR 1.0 (<1.2) APTT 22.4 (22.0-30.0) sec Sodium (137-145) mmol/L Potassium (3.5-5.1) mmol/L Chloride (98-107) mmol/L Carbon Dioxide (22-30) mmol/L Anion Gap mmol/L BUN (9-20) mg/dL Creatinine (0.66-1.25) mg/dL Est GFR (CKD-EPI)AfAm (>60 ml/min/1.73 sqM) Est GFR (CKD-EPI)NonAf (>60 ml/min/1.73 sqM) Glucose (74-99) mg/dL POC Glucose (mg/dL) 312 H (70-110) mg/dL POC Glu Coil Cleaner ID Neetu Elvie Calcium (8.4-10.2) mg/dL Phosphorus (2.5-4.5) mg/dL Magnesium (1.6-2.3) mg/dL Total Bilirubin (0.2-1.3) mg/dL AST (17-59) U/L ALT (4-49) U/L Alkaline Phosphatase (38-126) U/L Creatine Kinase (55-170) U/L Troponin I (0.000-0.034) ng/mL Total Protein (6.3-8.2) g/dL Albumin (3.5-5.0) g/dL TSH (0.465-4.680) mIU/L Serum Alcohol mg/dL 10/23/24 10/23/24 Range/Units 23:44 23:44 WBC (3.8-10.6) k/uL RBC (4.30-5.90) m/uL Hgb (13.0-17.5) gm/dL Hct (39.0-53.0) % MCV (80.0-100.0) fL MCH (25.0-35.0) pg MCHC (31.0-37.0) g/dL RDW (11.5-15.5) % Plt Count (150-450) k/uL MPV Neutrophils % % Lymphocytes % % Monocytes % % Eosinophils % % Basophils % % Neutrophils # (1.3-7.7) k/uL Lymphocytes # (1.0-4.8) k/uL Monocytes # (0-1.0) k/uL Eosinophils # (0-0.7) k/uL Basophils # (0-0.2) k/uL PT (10.0-12.5) sec INR (<1.2) APTT (22.0-30.0) sec Sodium 138 (137-145) mmol/L Potassium 4.5 (3.5-5.1) mmol/L Chloride 98 (98-107) mmol/L Carbon Dioxide 26 (22-30) mmol/L Anion Gap 14 mmol/L BUN 15 (9-20) mg/dL Creatinine 0.81 (0.66-1.25) mg/dL Est GFR (CKD-EPI)AfAm >90 (>60 ml/min/1.73 sqM) Est GFR (CKD-EPI)NonAf >90 (>60 ml/min/1.73 sqM) Glucose 329 H (74-99) mg/dL POC Glucose (mg/dL) (70-110) mg/dL POC Glu Coil Cleaner ID Calcium 9.9 (8.4-10.2) mg/dL Phosphorus 3.6 (2.5-4.5) mg/dL Magnesium 1.6 (1.6-2.3) mg/dL Total Bilirubin 1.5 H (0.2-1.3) mg/dL AST 28 (17-59) U/L ALT 35 (4-49) U/L Alkaline Phosphatase 189 H (38-126) U/L Creatine Kinase 102 (55-170) U/L Troponin I <0.012 (0.000-0.034) ng/mL Total Protein 8.8 H (6.3-8.2) g/dL Albumin 5.3 H (3.5-5.0) g/dL TSH 1.120 (0.465-4.680) mIU/L Serum Alcohol <10 mg/dL - NIH Stroke Scale 1a. Level of Consciousness: (0) alert 1b. LOC Questions: (0) answers correctly 1c. LOC Commands: (0) performs tasks correctly 2. Best Gaze: (2) forced deviation 3. Visual: (1) partial hemianopia 4. Facial Palsy: (3) complete paralysis 5a. Motor Arm Left: (0) no drift 5b. Motor Arm Right: (0) no drift 6a. Motor Leg Left: (0) no drift 6b. Motor Leg Right: (0) no drift 7. Limb Ataxia: (0) absent 8. Sensory: (0) normal 9. Best Language: (0) no aphasia 10. Dysarthria: (0) normal 11. Extinction/Inattention: (0) no abnormality - Thrombolytic Inclusion/Exclusion Thrombolytic Inclusion Criteria: Symptom Onset < 4.5 h - Medical Decision Making 44 male to the ER for evaluation of vision changes, patient does have deviated left pupil, patient has significant intracranial hemorrhage found on CT scan, blood pressure is severely elevated but improved control with labetalol and now on Cleviprex. Patient will be transferred for neurosurgery - Radiology Data Radiology results: report reviewed (CT brain and CT angio was positive for intracranial hemorrhage), image reviewed - EKG Data -: EKG Interpreted by Me (EKG is sinus tachycardia 150 MO 125 QRS 98 QTc 362) Past Medical History Past Medical History: Diabetes Mellitus, Hypertension Additional Past Medical History / Comment(s): Diet controlled diabetes. Recent blood in stool. History of Any Multi-Drug Resistant Organisms: None Reported Past Surgical History: Appendectomy Past Anesthesia/Blood Transfusion Reactions: No Reported Reaction Past Psychological History: No Psychological Hx Reported Smoking Status: Former smoker Past Alcohol Use History: None Reported Past Drug Use History: None Reported - Past Family History Father Family Medical History: No Reported History Course Vital Signs 10/23/24 10/23/24 10/23/24 23:31 23:41 23:55 Temperature 98 F Pulse Rate 150 H 101 H Respiratory 22 16 Rate Blood Pressure 236/169 202/140 O2 Sat by Pulse 98 98 Oximetry 10/24/24 10/24/24 10/24/24 00:13 00:16 00:21 Temperature Pulse Rate 100 99 96 Respiratory 16 16 16 Rate Blood Pressure 202/128 185/120 160/109 O2 Sat by Pulse 100 98 96 Oximetry 10/24/24 10/24/24 10/24/24 00:26 00:31 00:36 Temperature Pulse Rate 94 97 94 Respiratory 16 16 16 Rate Blood Pressure 153/105 157/108 158/109 O2 Sat by Pulse 96 96 96 Oximetry 10/24/24 10/24/24 10/24/24 00:41 00:51 00:56 Temperature Pulse Rate 95 97 90 Respiratory 16 16 16 Rate Blood Pressure 171/109 161/111 166/116 O2 Sat by Pulse 96 98 97 Oximetry 10/24/24 10/24/24 10/24/24 01:02 01:10 01:17 Temperature Pulse Rate 93 95 91 Respiratory 16 16 16 Rate Blood Pressure 170/112 143/99 162/108 O2 Sat by Pulse 97 96 97 Oximetry - Reevaluation(s) Reevaluation #1: 10/24/24 00:53 Medical records reviewed Reevaluation #2: 10/24/24 00:54 Patient's blood pressure is improving with multiple blood pressure medications and treatment Reevaluation #3: 10/24/24 01:14 Patient continues to improve but symptoms are unchanged Reevaluation #4: Was pt. sent in by a medical professional or institution (, [facility], [facility] [facility], urgent care, hospital, or group home...) When possible be specific @ -no Did you speak to anyone other than the patient for history (EMS, parent, family, police, friend...)? What history was obtained from this source @ -no Did you review nursing and triage notes (agree or disagree)? Why? @ -agree Are old charts reviewed (outside hosp., previous admission, EMS record, old EKG, old radiological studies, urgent care reports/EKG's, group home records)? Report findings @ -yes Differential Diagnosis (chest pain, altered mental status, abdominal pain women, abdominal pain men, vaginal bleeding, weakness, fever, dyspnea, syncope, headache, dizziness, GI bleed, back pain, seizure, CVA, palpatations, mental health, musculoskeletal)? @ -prior EKG interpreted by me (3pts min.). @ -yes X-rays interpreted by me (1pt min.). @ -yes negative for acute disease CT interpreted by me (1pt min.). @ -no U/S interpreted by me (1pt. min.). @ -no What testing was considered but not performed or refused? (CT, X-rays, U/S, labs)? Why? @ -none What meds were considered but not given or refused? Why? @ -none Did you discuss the management of the patient with other professionals (professionals i.e. , [facility], [employer], lab, RT, psych nurse, renal social worker, development and housing director, teacher, parking officer, casework supervisor)? Give summary @ -no Was smoking cessation discussed for >3mins.? @ -no Was critical care preformed (if so, how long)? @ -no Were there social determinants of health that impacted care today? How? (Homele ssness, low income, unemployed, alcoholism, drug addiction, transportation, low edu. Level, literacy, decrease access to med. care, retirement, rehab)? @ -none Was there de-escalation of care discussed even if they declined (Discuss DNR or withdrawal of care, Hospice)? DNR status @ -no What co-morbidities impacted this encounter? (DM, HTN, Smoking, COPD, CAD, Cancer, CVA, ARF, Chemo, Hep., AIDS, mental health diagnosis, sleep apnea, morbid obesity)? @ -none Was patient admitted / discharged? Hospital course, mention meds given and route, prescriptions, significant lab abnormalities, going to OR and other pertinent info. @ - Undiagnosed new problem with uncertain prognosis? @ -no Drug Therapy requiring intensive monitoring for toxicity (Heparin, Nitro, Insulin, Cardizem)? @ -no Were any procedures done? @ -no Diagnosis/symptom? @ - Acute, or Chronic, or Acute on Chronic? @ -Acute Uncomplicated (without systemic symptoms) or Complicated (systemic symptoms)? @ -Complicated Side effects of treatment? @ -no Exacerbation, Progression, or Severe Exacerbation? @ -exacerbation Poses a threat to life or bodily function? How? (Chest pain, [place], [place], pneumonia, PE, COPD, DKA, ARF, appy, cholecystitis, CVA, Diverticulitis, Homicidal, Suicidal, threat to staff... and all critical care pts) @ -yes Reevaluation #5: Differential CVA Ischemic stroke, hemorrhagic stroke, brain tumor, atypical migraine, Wernicke's encephalopathy, seizure, multiple sclerosis, meningitis, encephalitis, hypoglycemia, Guillain-Moeller, electrolytes disturbance, myasthenia gravis.... This is not meant to be an all-inclusive list - Consultations Consultation #1: Clinical call spoke with for neurosurgery who agrees to accept patient as a soto sfer Critical Care Time Critical Care Time: Yes Total Critical Care Time: 95 Disposition Clinical Impression: Intraventricular hemorrhage, Hypertensive emergency, Intracranial hemorrhage Narrative: Left Eye Lateral Deviation, Pupil Dilation Disposition: OTHER INSTITUTION NOT DEFINED Condition: Critical Is patient prescribed a controlled substance at d/c from ED?: No Referrals: Kei Tolentino MD [Primary Care Provider] - 1-2 days Time of Disposition: 01:10
[2024-10-23 23:43] LABS: Glucose,Whole Blood 312 mg/dL (70-110)
[2024-10-23] MEDS: ONDANSETRON 4 MG/2 ML VIAL IVP STA (23:49)
[2024-10-23] MEDS: SODIUM CHLORIDE 0.9% 1,000 ML IV STA (23:50)
[2024-10-23] MEDS: CLEVIDIPINE BUTYRATE 25 MG in EMPTY BAG 1 BAG IV SCH (23:52)
[2024-10-23] MEDS: LABETALOL 5 MG/ML VIAL MDV IVP STA (23:52)
[2024-10-23 23:56] LABS: Basophils # (A) 0.1 k/uL (0-0.2); Basophils % (A) 0 %; Eosinophils # (A) 0.1 k/uL (0-0.7); Eosinophils % (A) 1 %; HCT 49.3 % (39.0-53.0); HGB 17.1 gm/dL (13.0-17.5); Lymphocytes # (A) 0.9 k/uL (1.0-4.8); Lymphocytes % (A) 6 %; MCH 30.6 pg (25.0-35.0); MCHC 34.7 g/dL (31.0-37.0); Mean Platelet Volume 6.6; Monocytes # (A) 0.3 k/uL (0-1.0); Monocytes % (A) 2 %; Neutrophils # (A) 14.6 k/uL (1.3-7.7); Neutrophils % (A) 91 %; Platelet Count 412 k/uL (150-450); RDW 12.4 % (11.5-15.5)
[2024-10-24 00:06] LABS: Potassium 4.5 mmol/L (3.5-5.1)
[2024-10-24 00:07] LABS: ALT 35 U/L (4-49); AST 28 U/L (17-59); African American GFR (CKD) >90 (>60 ml/min/1.73 sqM); Albumin 5.3 g/dL (3.5-5.0); Alcohol <10 mg/dL; Alkaline Phosphatase 189 U/L (38-126); Anion Gap 14 mmol/L; Blood Urea Nitrogen 15 mg/dL (9-20); Calcium 9.9 mg/dL (8.4-10.2); Carbon Dioxide 26 mmol/L (22-30); Chloride 98 mmol/L (98-107); Creatine Kinase 102 U/L (55-170); Glucose 329 mg/dL (74-99); Magnesium 1.6 mg/dL (1.6-2.3); Non-African American GFR(CKD) >90 (>60 ml/min/1.73 sqM); Partial Thromboplastin Time 22.4 sec (22.0-30.0); Phosphorus 3.6 mg/dL (2.5-4.5); Prothrombin Time 11.2 sec (10.0-12.5); Sodium 138 mmol/L (137-145); Total Bilirubin 1.5 mg/dL (0.2-1.3); Total Protein 8.8 g/dL (6.3-8.2)
[2024-10-24 00:15] VITALS: RESP 16
--- NOTE | 2024-10-24 01:02 | CT ---
EXAM: CT Head Without Intravenous Contrast CLINICAL HISTORY: ITS.REASON CT Reason: Neuro deficit, acute, stroke suspected TECHNIQUE: Axial computed tomography images of the head/brain without intravenous contrast. CTDI is 48.9 mGy and DLP is 1106.8 mGy-cm. This CT exam was performed using one or more of the following dose reduction techniques: automated exposure control, adjustment of the mA and/or kV according to patient size, and/or use of iterative reconstruction technique. COMPARISON: No relevant prior studies available. FINDINGS: Mild intraventricular hemorrhage in the third ventricle. The territorial smith-white matter differentiation is maintained throughout. The ventricles and sulci are commensurate with age. The visualized orbits appear grossly unremarkable. The calvarium is intact. The visualized paranasal sinuses and mastoid air cells are grossly clear. IMPRESSION: Mild intraventricular hemorrhage in the third ventricle. <MYCVCSECTION> Communications: 10/24/24 01:05 Call Doctor Regarding Other, called Dr. Corona on 10/24 01:04 (-05:00)
--- NOTE | 2024-10-24 01:13 | CT ---
EXAM: CT Angiography Head With Intravenous Contrast CLINICAL HISTORY: ITS.REASON CT Reason: Neuro deficit, acute, stroke suspected TECHNIQUE: Axial computed tomographic angiography images of the head with intravenous contrast. CTDI is 12.6 mGy and DLP is 237.3 mGy-cm. This CT exam was performed using one or more of the following dose reduction techniques: automated exposure control, adjustment of the mA and/or kV according to patient size, and/or use of iterative reconstruction technique. MIP reconstructed images were created and reviewed. COMPARISON: No relevant prior studies available. FINDINGS: Right internal carotid artery: No significant stenosis. No aneurysm. Right anterior cerebral artery: No significant stenosis. No aneurysm. Right middle cerebral artery: No significant stenosis. No aneurysm. Right posterior cerebral artery: No significant stenosis. No aneurysm. Right vertebral artery: Unremarkable. Left internal carotid artery: No significant stenosis. No aneurysm. Left anterior cerebral artery: No significant stenosis. No aneurysm. Left middle cerebral artery: No significant stenosis. No aneurysm. Left posterior cerebral artery: No significant stenosis. No aneurysm. Left vertebral artery: Unremarkable. Basilar artery: No significant stenosis. No aneurysm. IMPRESSION: No significant stenosis. EXAM: CT Angiography Neck With Intravenous Contrast CLINICAL HISTORY: ITS.REASON CT Reason: Neuro deficit, acute, stroke suspected TECHNIQUE: Routine carotid CT angiography protocol was performed with intravenous contrast. NASCET criteria using the distal ICAs for comparison were used for evaluation of stenoses. CTDI is 12.6 mGy and DLP is 237.3 mGy-cm. This CT exam was performed using one or more of the following dose reduction techniques: automated exposure control, adjustment of the mA and/or kV according to patient size, and/or use of iterative reconstruction technique. MIP reconstructed images were created and reviewed. COMPARISON: None. FINDINGS: VASCULATURE: Right common carotid artery: No significant stenosis. No dissection. Right internal carotid artery: No significant stenosis. No dissection. Right vertebral artery: No significant stenosis. No dissection. Left common carotid artery: No significant stenosis. No dissection. Left internal carotid artery: No significant stenosis. No dissection. Left vertebral artery: Severe stenosis around the level C3-4. No dissection. NECK: Lung apices: Clear. CAROTID STENOSIS REFERENCE USING NASCET CRITERIA: % ICA stenosis = (1 - narrowest ICA diameter/diameter of distal cervical ICA) x 100. Mild - <50% stenosis. Moderate - 50-69% stenosis. Severe - 70-94% stenosis. Near occlusion - 95-99% stenosis. Occluded - 100% stenosis. IMPRESSION: Focal severe stenosis left vertebral artery around the level C3-4. Cannot exclude prior injury/dissection <MYCVCSECTION> Communications: 10/24/24 01:20 Verify Receipt Verified receipt with JOSE Luz, to be given to Dr. Corona on 10/24 01:19 (-05:00)
[2024-10-24 02:03] LABS: Amphetamine Screen,Urine Not Detected (NotDetected); Barbiturate Screen,Urine Not Detected (NotDetected); Benzodiazepines Screen,Urine Not Detected (NotDetected); Cocaine Screen,Urine Not Detected (NotDetected); Methadone Screen, Urine Not Detected (NotDetected); Opiate Screen,Urine Not Detected (NotDetected); Oxycodone Screen, Urine Not Detected (NotDetected); Phencyclidine Screen,Urine Not Detected (NotDetected); Tricyclic Antidepressant,Urine Not Detected (NotDetected); Urn Cannabinoid Scrn Not Detected (NotDetected)
[2024-10-24 02:09] VITALS: BP 143/97; PULSE 96
== END 2024-10-24 02:27 | disposition other institution (70) ==
LOC: EC 23:17
DX: I61.5 Nontraumatic intracerebral hemorrhage, intraventricular (principal); I16.1 Hypertensive emergency; I62.9 Nontraumatic intracranial hemorrhage, unspecified; Z87.891 Personal history of nicotine dependence; Z88.8 Allergy status to other drugs, medicaments and biological substances
CPT/HCPCS: 36415; 93005; 80053; 84443; 82550; 83735; 84100; 84484; 85025; 85610; 85730; 80320; 99291; 96365; 96366 ×2; 96375 ×2; J2405; C9248; J1920; 70450; 70496; 70498; 80306